=== PATIENT | male | born 1965 | race Caucasian/White ===

== ENCOUNTER 2023-09-12 18:15 | Emergency (ER) | payer OTHER ==
--- NOTE | 2023-09-12 18:43 | ED Physician Documentation ---
PD HPI LOWER EXT INJURY - Stated complaint Stated Complaint: RT ANKLE INJ - Chief complaint Chief Complaint: Ext Problem - History obtained from History obtained from: Patient - History of Present Illness PD HPI LOW EXT INJURY LOCATION: Right, Ankle, Foot Type of injury: Fall, Twist Where injury occurred: Home Timing - onset: How many days ago (5) Timing - duration: Days (5) Pain level max: 9 Pain level now: 9 Improved by: Rest, Ice, Immobilization Worsened by: Moving, Palpating Associated symptoms: Swelling. No: Weakness, Numbness, Tingling, Discolored Contributing factors: No: Anticoagulated, Prior ortho surgery, Prosthetic joint Recently seen: Not recently seen - Additional information Additional information: 58-year-old man presents to the emergency department stating that he injured his right foot and right ankle about a week ago. He states that he "rolled his ankle". He states since that time he has had increasing pain and swelling. Worse with movement, better with rest. Taken Tylenol without relief. No fevers. No chills., No head, neck, back pain. Review of Systems Musculoskeletal: denies: Neck pain, Back pain Neurologic: denies: Head injury PD PAST MEDICAL HISTORY - Past Medical History Past Medical History: Yes Cardiovascular: Hypertension Respiratory: None Neuro: None Endocrine/Autoimmune: Type 2 diabetes GI: None : Benign prostate hypertrophy HEENT: None Psych: None Musculoskeletal: None Derm: None - Past Surgical History Past Surgical History: No General: Cholecystectomy, Appendectomy HEENT: Tonsil/Adenoidectomy - Present Medications Home Medications: Ambulatory Orders Medication Instructions Recorded Confirmed HYDROcod/ACETAM 5/325 [[place]phz[place] 5/325] 1 - 2 ea PO Q6H PRN #14 tablet 09/12/23 Lisinopril [Zestril] 10 mg PO DAILY 09/12/23 09/12/23 Tamsulosin [Flomax] 0.4 mg PO DAILY 09/12/23 09/12/23 hydroCHLOROthiazide [Hydrodiuril] 12.5 mg PO DAILY 09/12/23 09/12/23 metFORMIN [Glucophage] 500 mg PO DAILY 09/12/23 09/12/23 - Allergies Allergies/Adverse Reactions: Allergies Allergy/AdvReac Type Severity Reaction Status Date / Time No Known Drug Allergies Allergy Verified 09/12/23 18:26 - Social History Does the pt smoke?: No Smoking Status: Never smoker Does the pt drink ETOH?: No Does the pt have substance abuse?: No - Immunizations Immunizations are current?: Yes - POLST Patient has POLST: No PD ED PE NORMAL - Vitals Vital signs reviewed: Yes - General General: Alert and oriented X 3, No acute distress, Well developed/nourished - HEENT HEENT: Moist mucous membranes - Respiratory Respiratory: No respiratory distress - Derm Derm: Warm and dry - Extremities Extremities: Other - Neuro Neuro: Alert and oriented X 3 - Psych Psych: Normal mood, Normal affect - Free text exam Free text exam: Mild tenderness over the medial malleolus of the right ankle. Most of the swelling is over the dorsum of the foot. Tender over the distal aspect of the second metatarsal. There is also mild tenderness over the Achilles tendon. The Achilles tendon is intact. Otherwise normal exam of the right lower extremity. Results - Vitals Vitals: Vital Signs - 24 hr 09/12/23 09/12/23 18:21 20:34 Temperature 36.4 C L Heart Rate 120 H 96 Respiratory 16 18 Rate Blood Pressure 145/96 H 138/87 H O2 Saturation 97 99 Oxygen O2 Source Room air - Rads (name of study) R ankle xray Relevant Findings:: Final report received, See rad report R foot xray Relevant Findings:: Final report received, See rad report PD Medical Decision Making - ED course Complexity details: reviewed results, re-evaluated patient, considered differential, d/w patient ED course: 58-year-old male with right ankle pain and swelling. Ongoing for the past 5 to 6 days. No acute findings on x-ray other than a small joint effusion and a possible slight cortical irregularity at the anterior tibia. He does not have any tenderness at this site. Patient's pain is well-controlled with hydrocodone. Placed into a walking boot. Given crutches. Will have him follow-up with his doctor for further care. Patient counseled regarding signs and symptoms for which I believe and urgent re-evaluation would be necessary. Patient with good understanding of and agreement to plan and is comfortable going home at this time This document was made in part using voice recognition software. While efforts are made to proofread this document, sound alike and grammatical errors may occur. Departure - Departure Disposition: 01 Home, Self Care Clinical Impression: Ankle sprain Qualifiers: Encounter type: initial encounter Involved ligament of ankle: unspecified ligament Laterality: right Qualified Code(s): S93.401A - Sprain of unspecified ligament of right ankle, initial encounter Condition: Good Instructions: ED Sprain Ankle Follow-Up: your,doctor in 1 week [Other] Orthopedic Care [Provider Group] - Within 1 week Prescriptions: HYDROcod/ACETAM 5/325 [[place]phz[place] 5/325] 1 - 2 ea PO Q6H PRN #14 tablet PRN Reason: Pain Comments: Your prescription and was sent to [facility] in [place]. You can use the Vicodin as needed for pain. Your x-ray does not show any acute abnormalities. There was a question of small cortical deficit on the anterior portion of your ankle, you are not tender at this site however. Suspect this is more likely artifact. Please stay in the walking boot is much as possible. Continue to ice the area. Use crutches to help you get around at home. Try not to bear weight. Please follow-up with your doctor and/or orthopedics in 1 week for repeat evaluation. I am prescribing a short course of narcotic pain medication for you. These are potentially dangerous and addictive medications that should be used carefully. These medications may constipate you. Take an lzqs-qqh-zdbyqxp stool softener (docusate) twice daily with plenty of water while taking these medications. If you go 24 hours without a bowel movement, take oxvr-ptv-odqkuol miralax, per package instructions. Do not drink or drive while taking these medications. If you received narcotic or sedating medications while in the emergency dep artment, do not drive for 24 hours. Store this medication in a safe, secure place and out of reach of children. It is a violation of federal law to give or sell this medication to another person or to use in a manner other than prescribed. The ED will not refill narcotic prescriptions, including prescriptions lost or stolen. To dispose of unwanted medications: 1. [facility] at [address] in [place] has a medication drop box. They accept prescription medications (in pill form) Saturday through Saturday 9:00 a.m. to 5:00 p.m. 2. [facility] accepts prescription medications (in pill form only) for disposal year round. Call for more information. 3. Contact the [facility] for the next [facility] sponsored prescription drug collection event. , [phone], or [phone]; Forms: PCP List Discharge Date/Time: 09/12/23 20:34
[2023-09-12] MEDS: HYDROcod/ACETAM 5/325 MG TABLET PO STA (18:56)
--- NOTE | 2023-09-12 19:50 | XRAY Report ---
PROCEDURE: Ankle 3+V RT INDICATIONS: twisted r ankle/ pain + tenderness TECHNIQUE: 3 views of the ankle were acquired. COMPARISON: None. FINDINGS: Bones: There is cortical irregularity in the anterior aspect of the distal tibia at the tibiotalar j oint. Ankle mortise is normally aligned. No suspicious bony lesions. There is plantar and posterio r calcaneal spurring. Soft tissues: Small tibiotalar joint effusion. Achilles tendon appears normal. IMPRESSION: 1. There is cortical irregularity in the anterior aspect of the distal tibia at the tibiotalar joint. . Differential diagnoses are artifact, prominent osteophyte versus avulsion fracture. Recommend morgan elation with focal pain and tenderness. If clinically indicated, consider advanced imaging such as CT . 2. Small tibiotalar joint effusion. Reviewed by: Chasity Jacobs MD on 09/12/2023 7:49 PM PDT Approved by: Chasity Jacobs MD on 09/12/2023 7:49 PM PDT Station ID: [id number]
--- NOTE | 2023-09-12 19:52 | XRAY Report ---
PROCEDURE: Foot 3+V RT INDICATIONS: fall 1 week ago, pain TECHNIQUE: 3 views of the foot were acquired. COMPARISON: X-ray right ankle, 09/12/2023. FINDINGS: Bones: There is cortical irregularity in the anterior aspect of the distal tibia at the tibiotalar j oint. No suspicious bony lesions. There is posterior and plantar calcaneal spurring. Soft tissues: Small tibiotalar joint effusion. Achilles tendon appears normal. IMPRESSION: 1. Cortical irregularity in the anterior aspect of the distal tibia at the tibiotalar joint. Differen tial diagnoses are infectious, prominent osteophyte versus a small avulsion fracture. Recommend corre lation with focal pain and tenderness. If clinically indicated, consider advanced imaging such as CT. 2. Small tibiotalar joint effusion. 3. Degenerative joint disease. 4. Prominent posterior and plantar calcaneal spurring. Reviewed by: Chasity Jacobs MD on 09/12/2023 7:50 PM PDT Approved by: Chasity Jacobs MD on 09/12/2023 7:50 PM PDT Station ID: [id number]
[2023-09-12 20:42] VITALS: BP 138/87; O2SAT 99
== END 2023-09-12 20:34 | disposition home or self-care (01) ==
LOC: ED 18:15
DX: S93.401A Sprain of unspecified ligament of right ankle, initial encounter (principal); X50.1XXA Overexertion from prolonged static or awkward postures, initial encounter; Y93.01 Activity, walking, marching and hiking
CPT/HCPCS: 1040M; 73610; 73630; 99283; A9270